=== PATIENT | female | born 1940 | race Caucasian/White ===

== ENCOUNTER 2016-10-26 10:40 | Emergency (ER) | payer MEDICARE, BC ==
--- NOTE | 2016-10-26 10:42 | ER Document Report ---
ED Fall - General Time seen by provider: 10:20 Mode of Arrival: Medic Information source: Relative - spouse, Emergency Med Personnel - HPI Occurred: Other - see HPI note <TALHAKUSUM BECKETT - Last Filed: 10/26/16 13:13> <JESIKA GARCIA - Last Filed: 10/26/16 15:08> - General Stated Complaint: NON RESPONSIVE Notes: Patient is a 75 year old female presenting to the ED for unresponsiveness. Patient was asleep on the couch last night and patient's told her johanna and she was at her baseline. Patient was found on the couch in the same position in the morning by the . states that the patient held his hand but never spoke or opened her eyes. EMS was called who brought the patient in. When with EMS the patient did awake briefly to say she was "drinking wine last night and fell." states the patient did not fall and was not drinking last night; states she attended a town meeting last night. Patient has a history of diabetes mellitus and her blood glucose levels were normal. Patient was not responsive to narcan x2 with EMS and x1 in the ED. Patient is not on any pain medications. Patient is allergic to sulfa drugs. (KUSUM ROMERO) - Related data Allergies/Adverse Reactions: Sulfa (Sulfonamide Antibiotics) Adverse Reaction (Verified 10/26/16 13:32) Past Medical History - General Cannot obtain history due to: Intubated - Social History Smoking Status: Unknown if Ever Smoked Family History: None <HEATHERKUSUM - Last Filed: 10/26/16 13:13> Review of Systems - Review of Systems -: Yes ROS unobtainable due to patient's medical condition <HEATHERKUSUM - Last Filed: 10/26/16 13:13> Physical Exam - General General appearance: Unresponsive - HEENT Head: Normocephalic, Atraumatic Pupils: Fixed - and minimally reactive, Pinpoint Mucous membranes: Moist - Respiratory Respiratory status: Other - sonorous respirations - Cardiovascular Rhythm: Regular Heart sounds: Normal auscultation Murmur: No - Abdominal Inspection: Normal - Back Back: Normal - Extremities General upper extremity: Normal inspection General lower extremity: Normal inspection - Neurological [place] Coma Scale Eye Opening: None Elizabeth Coma Scale Verbal: None [place] Coma Scale Motor: Extensor Response Elizabeth Coma Scale Total: 4 - Skin Skin Temperature: Warm <KUSUM ROMERO - Last Filed: 10/26/16 13:13> <JESIKA GARCIA - Last Filed: 10/26/16 15:08> - Vital signs Vitals: Pulse Ox 93 10/26/16 11:26 Pulse Ox 93 10/26/16 11:26 (KUSUM ROMERO) - Neurological Notes: patient will withdrawal her extremities (upper and lower) bilaterally to painful stimuli; non-verbal (HEATHERBENJAMINKUSUM) Course - Laboratory Result Diagrams: 10/26/16 11:01 10/26/16 11:33 - Consults [facility] Time consulted: 12:04 [facility] Time consulted: 12:07 <KUSUM ROMERO - Last Filed: 10/26/16 13:13> - Laboratory Result Diagrams: 10/26/16 11:01 10/26/16 11:33 <JESIKA GARCIA - Last Filed: 10/26/16 15:08> - Re-evaluation Re-evalutation: 10/26/16 12:12 I personally performed the services described in the documentation, reviewed and edited the documentation which was dictated to my scribe in my presence, and it accurately records my words and actions. Patient presents the emergency department up 100 on 100% nonrebreather. EMS states that the called stating he couldn't wake his up. EMS initially stated patient had woken up temporarily said she had a few drinks and fell last night. Immediately placed a c-collar on her went straight over to the CAT scan with her for CT of the head neck face. Prior back to the emergency department Accu-Chek was normal Narcan no response. Patient a GCS of 4 she would only move her arms or legs to painful stimuli but did not open her eyes. Her pupils were 1 mm and fixed with minimal reaction to light. Immediately called for intubation pretreated with etomidate succinylcholine and Versed. Very anterior used a bougie and intubated with 7-1/2 ET tube which was 23 cm at the lip. Stat portable chest x-ray showed her to be 8 cm above the idris rechecked her she was 23 cm the lip took her off the ventilator advanced 3 cm to 26 of the lip and she was in the right mainstem. Pulled the ET tube at 1 cm mainline equal bilateral breath sounds absent over the epigastrium satting 94-95 %. Patient was sedated with the prevent drip. CT of the head negative for acute pathology CT of the face and cervical spine negative. EKG nonacute. No white count elevation. Abdomen is soft no pulsatile dullness is or hernias femoral pulses distal perfusion with no neurological deficits. Plan can't do an MRI of the patient here can she has an aortic stent that is made of metal. Needs to be transferred to a tertiary center where they can have a neuro ICU bed and her neurologist further assess her mental status. No report of trauma on the patient. 10/26/16 14:15 Contacted [facility] they have no beds available and are close to transfer. [place] does not have a neurosurgeon in case there is a ruptured aneurysm. Spoke with [facility] attending Dr. Betancourt excepted the patient at 1221 pending transport via helicopter patient is on a waiting list. Multiple updates with family. Patient was vital signs stable on the prevent drip until she became hypotensive at approximately 205. The prevent drip was stopped at this time. Minimal neuro activity noted. Blood pressure still in the 70s started on a levothyroid drip. Currently only Levophed drip her blood pressure is 112 systolic. No white count elevation electrolytes are normal no signs of sepsis or infection. Going to repeat the CT of the head still pending transfer to [facility] and CT her chest abdomen pelvis due to a hypotensive event. The cultures urine cultures she has been covered with broad-spectrum antibiotics including acyclovir in case this was herpes encephalitis which I significantly doubt. 14:43 [facility] again notified due to update in patient's status that she became hypotensive we stopped diprivan and pressure came back up without levophed and patient given vecuronium and versed. Dr. Betancourt accepting physician again paged 10/26/16 14:[address] Betancourt who was updated agrees with plan and she is second on the list. At this point I updated the and gave extensive sign out to Dr. Kraus who is taking over the management of the patient he knows that there is a repeat troponin blood gas CT of the head chest abdomen and pelvis pending on this patient he knows that Dr. Betancourt has accepted the patient and that they have told me that she second on the list. 10/26/16 15:04 (JESIKA GARCIA) - Vital Signs Vital signs: Temp Pulse Resp BP Pulse Ox 97.3 F 12 128/104 H 100 10/26/16 13:25 10/26/16 14:42 10/26/16 14:42 10/26/16 14:42 - Laboratory Laboratory results interpreted by me: 10/26/16 10/26/16 10/26/16 10:50 11:33 13:05 Carbonic Acid ABG pH ABG pCO2 ABG pO2 ABG O2 Saturation Glucose 139 H POC Glucose 126 H AST 41 H ALT 64 H CSF WBC 6 H CSF RBC 2315 H Salicylates < 1.0 L Acetaminophen < 10 L 10/26/16 14:20 Carbonic Acid 1.42 H ABG pH 7.26 L ABG pCO2 47.3 H ABG pO2 243.8 H ABG O2 Saturation 99.4 H Glucose POC Glucose AST ALT CSF WBC CSF RBC Salicylates Acetaminophen - EKG Interpretation by Me Additional EKG results interpreted by me: 10/26/16 14:36 KG #[address] sinus rhythm no acute ST segment elevation or depression EKG #2 obtained at 1403 sinus rhythm no acute ST segment elevation or depression (JESIKA GARCIA) - Consults [facility] Reason for consultation: 10/26/16 12:03 Called [facility] for possible transfer; they have no beds (KUSUM ROMERO) [facility] Reason for consultation: 10/26/16 12:07 Called [facility] for possible transfer; they will call back. 10/26/16 12:17 Call back from [facility], (KUSUM ROMERO) Procedures - Lumbar Puncture Lumbar puncture Time completed: 13:00 Lumbar puncture pre-procedure: Betadine prep applied Patient position: Lying Lumbar puncture location: L3-L4 Amount/type of drainage: 2 tubes of drainage Number of attempts: 2 Complications: No <KUSUM ROMERO - Last Filed: 10/26/16 13:13> - Intubation Orotracheal Airway evaluation: Large tongue Mallampati Classification: Class 3 Medications: Etomidate, Succinylcholine Intubation method: Orotracheal Blade type: Christy Equipment used: Bougie ETT size: 7.5 ETT secured at: Teeth ETT secured at (cm): 23 Breath Sounds after Intubation: Equal End tidal CO2 confirmed: Yes <JESIKA GARCIA - Last Filed: 10/26/16 15:08> - Intubation Orotracheal Notes: 10/26/16 12:16 Initial postintubation chest x-ray showed the ET tube to be 8 cm above the idris rechecked it was 23 at the lip and had not been altered. We went ahead and advanced it 3 cm only even though it said it was 8 cm above the idris it was right mainstem pulled back a centimeter and is within proper placement. ( JESIKA GARCIA) - Lumbar Puncture Lumbar puncture Notes: 10/26/16 13:00 On second attempt there was bloody drainage initially and then it cleared. 2 tubes were obtained. (KUSUM ROMERO) Critical Care Note - Critical Care Note Total time excluding time spent on procedures (mins): 120 <JESIKA GARCIA - Last Filed: 10/26/16 15:08> Discharge <KUSUM ROMERO - Last Filed: 10/26/16 13:13> <JESIKA GARCIA - Last Filed: 10/26/16 15:08> - Discharge Clinical Impression: acute obtundation of unknown etiology, respiratory failure acute Scribe Documentation - Scribe Written by Scraldo:: Kusum Romero 10/26/16 12:12 acting as scribe for :: Lexa <KUSUM ROMERO - Last Filed: 10/26/16 13:13>
[2016-10-26] MEDS ORDERED: NALOXONE HCL INJ 2 MG/2 ML DISP.SYRIN ONE (10:50)
[2016-10-26] MEDS ORDERED: ETOMIDATE INJ/PF 20 MG/10 ML SDV IV ONE ×2 (10:50→12:11)
[2016-10-26] MEDS ORDERED: MIDAZOLAM 2 MG/2 ML INJ ONE ×3 (11:05→14:13)
[2016-10-26] MEDS ORDERED: VECURONIUM BROMIDE INJ 10 MG VIAL IV ONE ×4 (11:05→14:13)
[2016-10-26] MEDS ORDERED: PROPOFOL 100 ML IV ONE (11:12)
[2016-10-26] MEDS ORDERED: FENTANYL CITRATE INJ/PF 100 MCG/2 ML AMPUL ONE ×3 (11:12→23:48)
[2016-10-26 11:14] LABS: ABSOLUTE EOSINOPHILS # (AUTO) 0.4 10^3/uL (0.0-0.6); ABSOLUTE MONOCYTES (AUTO) 0.8 10^3/uL (0.1-1.4); ABSOLUTE NEUT (AUTO) 4.9 10^3/uL (1.7-8.2); BASOPHILS % (AUTO) 0.5 % (0-2); HEMATOCRIT 41.9 % (36.0-47.0); HEMOGLOBIN 14.6 g/dL (12.0-15.5); HGB HCT DIFFERENCE 1.9; LYMPHOCYTES % (AUTO) 39.3 % (13-45); MEAN CORPUSCULAR HEMOGLOBIN 32.1 pg (27.0-33.4); MEAN CORPUSCULAR HGB CONC 34.9 g/dL (32.0-36.0); MEAN CORPUSCULAR VOLUME 92 fl (80-97); MONOCYTES % (AUTO) 8.2 % (3-13); RED BLOOD COUNT 4.55 10^6/uL (3.72-5.28); RED CELL DISTRIBUTION WIDTH 13.1 % (11.5-14.0); WHITE BLOOD COUNT 10.1 10^3/uL (4.0-10.5)
[2016-10-26 11:27] LABS: PROTHROMBIN TIME 12.4 SEC (11.4-15.4)
[2016-10-26] MEDS ORDERED: FENTANYL CITRATE INJ/PF 100 MCG/2 ML AMPUL IV ONE (12:10)
[2016-10-26] MEDS ORDERED: SUCCINYLCHOLINE CHLORIDE INJ 200 MG/10 ML VIAL IV ONE (12:11)
[2016-10-26 12:16] LABS: URINE BARBITURATES SCREEN NEGATIVE; URINE METHADONE SCREEN NEGATIVE; URINE OPIATES LOW NEGATIVE; URINE PHENCYCLIDINE SCREEN NEGATIVE
[2016-10-26] MEDS ORDERED: CEFTRIAXONE INJ 1000 MG VIAL IV ONE (12:21)
[2016-10-26 12:22] LABS: ALANINE AMINOTRANSFERASE 64 U/L (9-52); ALBUMIN 4.2 g/dL (3.5-5.0); ALKALINE PHOSPHATASE 57 U/L (38-126); ANION GAP 12 (5-19); ASPARTATE AMINO TRANSFERASE 41 U/L (14-36); BILIRUBIN,DIRECT 0.2 mg/dL (0.0-0.4); BILIRUBIN,TOTAL 0.6 mg/dL (0.2-1.3); BLOOD UREA NITROGEN 10 mg/dL (7-20); CALCIUM 10.1 mg/dL (8.4-10.2); CARBON DIOXIDE 24 mmol/L (22-30); CHLORIDE 105 mmol/L (98-107); CREATINE KINASE 50 U/L (30-135); CREATININE RESULT 0.61 mg/dL (0.52-1.25); GLUCOSE 139 mg/dL (75-110); POTASSIUM 4.8 mmol/L (3.6-5.0); SODIUM 141.2 mmol/L (137-145); TOTAL PROTEIN 7.2 g/dL (6.3-8.2)
[2016-10-26] MEDS ORDERED: ACYCLOVIR SODIUM INJ/PF 500 MG/10 ML SDV IV ONE (12:22)
[2016-10-26 12:30] LABS: CREATINE KINASE MB 0.59 ng/mL (<4.55)
[2016-10-26 12:31] LABS: TROPONIN I < 0.012 ng/mL
[2016-10-26] MEDS ORDERED: DEXTROSE 5%-WATER 250 ML with NOREPINEPHRINE BITARTRATE 4 MG IV PRN ×2 (14:11)
[2016-10-26] MEDS ORDERED: MIDAZOLAM 2 MG/2 ML INJ IV ONE (14:12)
[2016-10-26 14:14] LABS: APPEARANCE TUBE 1 HAZY
[2016-10-26 14:15] LABS: APPEARANCE TUBE 2 CLEAR; RBC AVERAGE 231.5; RBC DILUENT USED NONE USED; RBC DILUTION FACTOR 1; RBC SIDE 1 225; RBC SIDE 2 238; TOTAL RBC SQUARES COUNTED 25; WHITE BLOOD CELL,CSF 6 /uL (0-5)
[2016-10-26] MEDS ORDERED: NORMAL SALINE 1000 ML 1,000 ML IV ONE (14:34)
--- NOTE | 2016-10-26 14:42 | EKG REPORT ---
SEVERITY:- BORDERLINE ECG - SINUS RHYTHM BORDERLINE PROLONGED QT INTERVAL : Confirmed by: Helen Meeks 26-Oct-2016 14:41:45
--- NOTE | 2016-10-26 14:42 | EKG REPORT ---
SEVERITY:- NORMAL ECG - SINUS RHYTHM : Confirmed by: Helen Meeks 26-Oct-2016 14:41:52
[2016-10-26 14:49] LABS: ARTERIAL BLOOD BASE EXCESS -6.6 mmol/L; ARTERIAL BLOOD O2 SATURATION 99.4 % (94-98)
[2016-10-26] MEDS ORDERED: DOXYCYCLINE HYCLATE INJ 100 MG VIAL IV ONE (14:50)
[2016-10-26 15:01] LABS: ADD ON TESTING BLD IN LAB ACKNOWLEDGE
[2016-10-26] MEDS ORDERED: NORMAL SALINE 1000 ML 1,000 ML IV PRN (15:04)
[2016-10-26 15:47] LABS: C-REACTIVE PROTEIN < 5.0 mg/L (<10.0)
[2016-10-26] MEDS ORDERED: PROPOFOL 100 ML IV PRN (17:23)
[2016-10-26] MEDS ORDERED: MIDAZOLAM HCL 100 ML IV ONE (17:45)
[2016-10-26] MEDS ORDERED: NOREPINEPHRINE BITARTRATE INJ/PF 4 MG/4 ML SDV IV ONE ×2 (19:34→19:35)
[2016-10-26] MEDS ORDERED: SUCCINYLCHOLINE CHLORIDE INJ 200 MG/10 ML VIAL ONE (21:15)
[2016-10-26] MEDS ORDERED: ACETAMINOPHEN SOLN 325 MG/10.15 ML UDCUP PO ONE (21:42)
[2016-10-26] MEDS ORDERED: AZITHROMYCIN INJ 500 MG VIAL IV ONE (22:48)
[2016-10-26 23:28] LABS: ABSOLUTE LYMPHOCYTES (AUTO) 1.7 10^3/uL (0.5-4.7); ABSOLUTE MONOCYTES (AUTO) 1.3 10^3/uL (0.1-1.4); ABSOLUTE NEUT (AUTO) 11.6 10^3/uL (1.7-8.2); BASOPHILS % (AUTO) 0.2 % (0-2); EOSINOPHILS % (AUTO) 0.2 % (0-6); HEMATOCRIT 36.8 % (36.0-47.0); HGB HCT DIFFERENCE 0.7; LYMPHOCYTES % (AUTO) 11.5 % (13-45); MEAN CORPUSCULAR HEMOGLOBIN 31.6 pg (27.0-33.4); MEAN CORPUSCULAR HGB CONC 33.9 g/dL (32.0-36.0); MEAN CORPUSCULAR VOLUME 93 fl (80-97); MONOCYTES % (AUTO) 9.1 % (3-13); RED BLOOD COUNT 3.94 10^6/uL (3.72-5.28); RED CELL DISTRIBUTION WIDTH 13.3 % (11.5-14.0); WHITE BLOOD COUNT 14.6 10^3/uL (4.0-10.5)
[2016-10-26 23:33] LABS: ARTERIAL BLOOD BASE EXCESS -6.3 mmol/L; ARTERIAL BLOOD O2 SATURATION 97.5 % (94-98)
[2016-10-26 23:39] LABS: ALANINE AMINOTRANSFERASE 129 U/L (9-52); ALBUMIN 2.9 g/dL (3.5-5.0); ALKALINE PHOSPHATASE 43 U/L (38-126); ANION GAP 11 (5-19); ASPARTATE AMINO TRANSFERASE 111 U/L (14-36); BILIRUBIN,DIRECT 0.1 mg/dL (0.0-0.4); BILIRUBIN,TOTAL 0.3 mg/dL (0.2-1.3); BLOOD UREA NITROGEN 8 mg/dL (7-20); CALCIUM 7.7 mg/dL (8.4-10.2); CARBON DIOXIDE 17 mmol/L (22-30); CHLORIDE 113 mmol/L (98-107); CREATININE RESULT 0.62 mg/dL (0.52-1.25); GLUCOSE 174 mg/dL (75-110); POTASSIUM 4.6 mmol/L (3.6-5.0); SODIUM 141.4 mmol/L (137-145); TOTAL PROTEIN 5.3 g/dL (6.3-8.2)
[2016-10-26 23:50] LABS: HEMOGLOBIN 12.5 g/dL (12.0-15.5)
[2016-10-27] MEDS ORDERED: CEFTRIAXONE INJ 1000 MG VIAL IM ONE (02:00)
--- NOTE | 2016-10-27 02:55 | ER Document Report ---
Doctor's Note Notes: 10/27/16 02:54 Left patient to the care of Dr. Kraus when I left this afternoon at 3 PM. Received signout back from Dr. Kraus when I came to work at 10:00 this evening. Patient quickly assessed and reassessed at the bedside vital signs stable at this time. They had never gotten the CT of the head chest abdomen pelvis they said they're having some trouble with her blood pressure. Repeat her CT of the head which was negative CT of the chest abdomen pelvis possible lower lobe pneumonia. The rest of her labs actually significantly improved Dr. Kraus told me that her troponin bumped on the second try but then he did a third one and it went back down again there is been several EKGs with no acute ST segment elevation or depression. Patient has been covered with antibiotics including Rocephin and acyclovir and doxycycline and Zithromax. Contacted [facility] back because we were told they were secondary For about a 3:00 this afternoon we're going to try to contact the neuro ICU to see if they have any beds for this patient. I have been asked excessively updating the family.
--- NOTE | 2016-10-27 03:32 | ER Document Report ---
Doctor's Note Notes: 10/27/16 03:32 Dr. Caba call me back from at [facility]. Gave him a full report on the patient bleeding that they could open up neuro ICU bed for us. He accepted the patient on his behalf didn't make any additional recommendations they stated at this time it would take about 15 or 20 minutes find out if they have an ICU bed available. They stated they will call us back at this point I have updated the family as well.
[2016-10-27] MEDS ORDERED: MIDAZOLAM HCL 100 ML IV ONE (04:23)
--- NOTE | 2016-10-27 05:41 | ER Document Report ---
Doctor's Note Notes: 10/27/16 05:41 [facility] called and stated that they had a bed for the patient helicopter is here. Patient is stable for transport via helicopter to [facility]
[2016-10-27 05:52] VITALS: BP 88/63
--- NOTE | 2016-10-27 08:15 | EKG REPORT ---
SEVERITY:- BORDERLINE ECG - SINUS TACHYCARDIA BORDERLINE R WAVE PROGRESSION, ANTERIOR LEADS BORDERLINE T ABNORMALITIES, ANT-LAT LEADS : Confirmed by: Helen Meeks 27-Oct-2016 08:14:32
== END 2016-10-27 06:00 | disposition short-term general hospital (02) ==
LOC: ER 10:40
PROC: 0BH17EZ Insertion of Endotracheal Airway into Trachea, Via Natural or Artificial Opening (ICD-10-PCS; principal; 2016-10-26)
PROC: 009U3ZX Drainage of Spinal Canal, Percutaneous Approach, Diagnostic (ICD-10-PCS; 2016-10-26)
DX: J96.00 Acute respiratory failure, unspecified whether with hypoxia or hypercapnia (principal); I95.9 Hypotension, unspecified; R41.82 Altered mental status, unspecified; Z98.61 Coronary angioplasty status
CPT/HCPCS: 31500; 62270; 93005; 99291; 99292; 96372; 96375; 96365; 96367; 36415; 87040; 87070; 87205; 82553; 82962; 82803; 82550; 83605 ×2; 80307 ×3; 85025; 85652; 85610; 89050; 86140; 80053; 84484; 85379; 83880; 71010; 70450; 70486; 71260; 72125; 74177; 93010; J2250 ×2; J0133; J3010; J2704; J3490 ×2; J0330; J0696 ×2; J2310; J7030; J0456; 94003

== ENCOUNTER 2020-01-27 22:48 | Emergency (ER) | payer MEDICARE, BC ==
--- NOTE | 2020-01-27 23:24 | ER Document Report ---
Entered by MODESTO SKINNER SCRIBE 01/27/20 2805 Acting as scribe for:ELAINE MCCLELLAN DO ED General - General Chief Complaint: Breathing Difficulty Stated Complaint: DIFFICULTY BREATHING Time Seen by Provider: 01/27/20 22:59 Mode of Arrival: Medic Information source: Emergency Med Personnel Notes: This 79 year old female patient brought in by EMS from home presents to the ED today with complaints of altered mental status per family. Patient's via phone reports that that the patient was diagnosed with lung cancer x1 week ago by her PCP in [place] and that the cancer has spread to her liver. He states that they are in the process of talking to Dr. Gasca in [place] to set up treatment. states that the patient had a period where she would just look at him and not speak tonight. She also had trouble with keeping a straw in her mouth and decreased PO intake. EMS reports that the patient was talkative, answering questions appropriately during transport; however, upon ED arrival, patient was nonverbal and exhibited a similar mental state as she did at home. Patient shakes her head in the negative when asked about any pain or dyspnea. TRAVEL OUTSIDE OF THE [place] IN LAST 30 DAYS: No - Related Data Allergies/Adverse Reactions: Sulfa (Sulfonamide Antibiotics) Adverse Reaction (Verified 10/26/16 13:32) Past Medical History - General Information source: Emergency Med Personnel - Social History Smoking Status: Unknown if Ever Smoked Cigarette use (# per day): No Chew tobacco use (# tins/day): No Smoking Education Provided: No Lives with: Family Family History: Reviewed & Not Pertinent Patient has suicidal ideation: No Patient has homicidal ideation: No - Past Medical History Cardiac Medical History: Reports: Hx Hypertension Endocrine Medical History: Reports: Hx Diabetes Mellitus Type 2 Malignancy Medical History: Reports: Hx Lung Cancer Past Surgical History: Reports: Hx Cardiac Surgery - aortic stent, Hx Cholecystectomy Review of Systems - Review of Systems -: Yes ROS unobtainable due to patient's medical condition Physical Exam - Vital signs Vitals: Pulse Ox 93 01/27/20 22:57 - General General appearance: Other - Quiet, not answering questions. Appears frail, weak, and dehydrated. In distress: None - HEENT Head: Normocephalic, Atraumatic Eyes: Normal Pupils: PERRL - Respiratory Respiratory status: No respiratory distress Chest status: Nontender Breath sounds: Normal - Good breath sounds Chest palpation: Normal - Cardiovascular Rhythm: Regular Heart sounds: Normal auscultation Murmur: No Friction rub: No Gallop: None auscultated - Abdominal Inspection: Normal Distension: No distension Bowel sounds: Normal Tenderness: Nontender - Abdomen soft Organomegaly: No organomegaly - Extremities General upper extremity: Normal inspection General lower extremity: Normal inspection. No: Edema - Neurological Neuro grossly intact: Yes - Psychological Associated symptoms: Other - Unable to assess due to patient's medical condition - Skin Notes: Poor skin turgor Course - Re-evaluation Re-evalutation: 01/28/20 03:12 MDM 79 year old female is here with altered mental status. No fever and nontoxic workup here. Will discharge to family and to see [facility] - oncology in follow up this week. 01/28/20 05:58 The is en route to [facility] the pt and have her follow up. - Vital Signs Vital signs: Temp Pulse Resp BP Pulse Ox 97.8 F 19 107/69 94 01/27/20 23:48 01/28/20 05:01 01/28/20 05:01 01/28/20 05:01 - Laboratory Result Diagrams: 01/28/20 00:00 01/28/20 00:00 Laboratory results interpreted by me: 01/28/20 01/28/20 01/28/20 00:00 00:00 00:00 WBC 11.9 H RDW 17.0 H Absolute Neuts (auto) 8.6 H Absolute Monos (auto) 1.5 H Sodium 131.7 L Glucose 114 H AST 87 H Ammonia Albumin 2.9 L TSH 6.07 H Urine Protein Urine Ketones Urine Nitrite Urine Urobilinogen Ur Leukocyte Esterase Urine Ascorbic Acid 01/28/20 01/28/20 00:00 00:31 WBC RDW Absolute Neuts (auto) Absolute Monos (auto) Sodium Glucose AST Ammonia < 8.7 L Albumin TSH Urine Protein 30 H Urine Ketones TRACE H Urine Nitrite POSITIVE H Urine Urobilinogen 2.0 H Ur Leukocyte Esterase SMALL H Urine Ascorbic Acid 40 H - Diagnostic Test Radiology reviewed: Image reviewed - NSR NL [place] 99 BPM Low amplitude. repolarization abnormality no st elevaiton or depression my interpretation., Reports reviewed - EKG Interpretation by Me EKG shows normal: Sinus rhythm Discharge - Discharge Clinical Impression: Altered mental state Qualifiers: Altered mental status type: unspecified Qualified Code(s): R41.82 - Altered mental status, unspecified Lung cancer Qualifiers: Laterality: right Lung location: lower lobe of lung Qualified Code(s): C34.31 - Malignant neoplasm of lower lobe, right bronchus or lung Condition: Stable Disposition: HOME, SELF-CARE Instructions: Altered Mental Status ([facility]), Family Physicians / Practices, Weakness ([facility]) Additional Instructions: See the oncologist in follow up as planned. Take medicines as perscribed. Please return here for weakness, fever, or other problems or any other concerns. I personally performed the services described in the documentation, reviewed and edited the documentation which was dictated to the scribe in my presence, and it accurately records my words and actions.
--- NOTE | 2020-01-27 23:46 | RADIOLOGY REPORT (SQ) ---
CLINICAL INDICATION: htn. TECHNIQUE: A single portable AP view was obtained of the chest at 2328 hours. COMPARISON: None. FINDINGS: The cardiomediastinal silhouette is stable. The lungs demonstrate progressive airspace disease right lung base. This appears somewhat rounded.. Small right effusion, similar to prior. No pneumothorax. The visualized bones are unremarkable. IMPRESSION: Progressive airspace disease right lung base that appears rounded. If there are symptoms suspicious for pneumonia, advise follow-up imaging of the chest standing PA and lateral after appropriate medical therapy. If there are no localizing symptoms suspicious for pneumonia, further evaluation with CT of the chest may be appropriate.
--- NOTE | 2020-01-27 23:49 | RADIOLOGY REPORT (SQ) ---
INDICATION: ams. COMPARISON: October 26, 2016 CORRELATION: None TECHNIQUE: Noncontrast spiral axial CT images were obtained from the skull base to vertex. This exam was performed according to our departmental dose-optimization program, which includes automated exposure control, adjustment of the mA and/or kV according to patient size and/or use of iterative reconstruction techniques. FINDINGS: There is no evidence of acute intracranial hemorrhage, midline shift, mass effect or mass lesion. Chou-white differentiation is normal. There is no evidence of acute large territory infarct. Age-related involutional changes are identified. Presumed old small vessel ischemic changes are seen predominantly in a periventricular distribution.. Vascular calcification The visualized paranasal sinuses are grossly clear. The orbits and eyeballs are unremarkable. The mastoid air cells are clear. Skull base and calvarium appear intact. IMPRESSION: No acute intracranial process is identified. Age-related involutional changes are identified. Presumed old small vessel ischemic changes are seen predominantly in a periventricular distribution.
[2020-01-28 00:21] LABS: ABSOLUTE EOSINOPHILS # (AUTO) 0.1 10^3/uL (0.0-0.6); ABSOLUTE LYMPHOCYTES (AUTO) 1.7 10^3/uL (0.5-4.7); ABSOLUTE MONOCYTES (AUTO) 1.5 10^3/uL (0.1-1.4); ABSOLUTE NEUT (AUTO) 8.6 10^3/uL (1.7-8.2); BASOPHILS % (AUTO) 0.3 % (0-2); EOSINOPHILS % (AUTO) 0.6 % (0-6); HEMATOCRIT 37.4 % (36.0-47.0); HEMOGLOBIN 12.5 g/dL (12.0-15.5); LYMPHOCYTES % (AUTO) 14.1 % (13-45); MEAN CORPUSCULAR HEMOGLOBIN 29.7 pg (27.0-33.4); MEAN CORPUSCULAR HGB CONC 33.4 g/dL (32.0-36.0); MEAN CORPUSCULAR VOLUME 89 fl (80-97); MONOCYTES % (AUTO) 12.7 % (3-13); PLATELET COUNT 348 10^3/uL (150-450); RED BLOOD COUNT 4.22 10^6/uL (3.72-5.28); SEGMENTED NEUTROPHILS % (AUTO) 72.3 % (42-78); TOTAL CELLS COUNTED % (AUTO) 100 %; WHITE BLOOD COUNT 11.9 10^3/uL (4.0-10.5)
[2020-01-28 00:39] LABS: ALBUMIN 2.9 g/dL (3.5-5.0); ALKALINE PHOSPHATASE 93 U/L (38-126); ANION GAP 9 (5-19); ASPARTATE AMINO TRANSFERASE 87 U/L (14-36); BILIRUBIN,DIRECT 0.1 mg/dL (0.0-0.4); BILIRUBIN,TOTAL 0.8 mg/dL (0.2-1.3); BLOOD UREA NITROGEN 17 mg/dL (7-20); CALCIUM 9.2 mg/dL (8.4-10.2); CARBON DIOXIDE 25 mmol/L (22-30); CHLORIDE 98 mmol/L (98-107); GLUCOSE 114 mg/dL (75-110); POTASSIUM 3.9 mmol/L (3.6-5.0); TOTAL PROTEIN 6.5 g/dL (6.3-8.2)
[2020-01-28 00:56] LABS: APPEARANCE,URINE CLOUDY; BILIRUBIN,URINE NEGATIVE (NEGATIVE); COLOR,URINE AMBER; GLUCOSE, URINE NEGATIVE (NEGATIVE); KETONES,URINE TRACE mg/dL (NEGATIVE); LEUKOCYTE ESTERASE,URINE SMALL (NEGATIVE); NITRITE,URINE POSITIVE (NEGATIVE); PROTEIN,URINE 30 mg/dL (NEGATIVE); URINE SPECIFIC GRAVITY 1.026
--- NOTE | 2020-01-28 01:05 | EKG REPORT ---
SEVERITY:- BORDERLINE ECG - SINUS RHYTHM BORDERLINE RIGHT AXIS DEVIATION BORDERLINE T ABNORMALITIES, ANTERIOR LEADS : Confirmed by: Kayy Garcia MD 28-Jan-2020 01:04:49
[2020-01-28 07:05] VITALS: BP 112/66
== END 2020-01-28 07:35 | disposition home or self-care (01) ==
LOC: ER 22:48
DX: R41.82 Altered mental status, unspecified (principal); C34.31 Malignant neoplasm of lower lobe, right bronchus or lung; C78.7 Secondary malignant neoplasm of liver and intrahepatic bile duct; I10 Essential (primary) hypertension; E11.9 Type 2 diabetes mellitus without complications; Z95.5 Presence of coronary angioplasty implant and graft; Z88.2 Allergy status to sulfonamides
CPT/HCPCS: 36415; 70450; 71045; 80053; 81001; 82140; 83735; 84443; 84484; 85025; 93005; 93010; 99285